=== PATIENT | male | born 1985 | race Caucasian/White ===

== ENCOUNTER 2020-02-24 16:27 | Outpatient (CLI) | payer OTHER, SELFPAY ==
[2020-02-24 17:14] LABS: SARS-CoV-2 Ag Negative (Negative)
== END 2020-02-24 16:28 | disposition home or self-care (01) ==
PROVIDERS: PCP Family Medicine; Visit Provider Family Medicine
DX: Z20.828 Contact with and (suspected) exposure to other viral communicable diseases (principal)
CPT/HCPCS: 87426

== ENCOUNTER 2020-02-25 11:26 | Outpatient (CLI) | payer OTHER, SELFPAY ==
--- NOTE | ~2020-02-25 | XR_ITS ---
LUMBAR SPINE INDICATION: Back pain TECHNIQUE: 5 views lumbar spine views lumbar spine COMPARISON: None FINDINGS: No fracture, subluxation or dislocation. No evidence for spondylolysis or spondylolisthesi s. Vertebral bodies and disk spaces are preserved. IMPRESSION: 1: No significant abnormality of the lumbar spine identified. Reviewed, dictated and finalized at location A. [employer] [employer]
[2020-02-25 11:45] LABS: Basophils Absolute Auto 0.1 K/mm3 (0.0-0.1); Basophils Percent Auto 0.9 % (0.2-1.2); Eosinophils Absolute Auto 0.1 K/mm3 (0-0.3); Eosinophils Percent Auto 2.1 % (0-4.4); Hematocrit 43.6 % (42.0-52.0); Hemoglobin 14.8 g/dL (14.0-18.0); Immature Granulocyte Absolute 0.01 K/mm3 (0.00-0.031); Immature Granulocyte Percent A 0.2 % (0-0.5); Lymphocytes Absolute Auto 1.83 K/mm3 (0.9-3.2); Lymphocytes Percent Auto 28.9 % (18.3-44.2); Mean Corpuscular HGB Conc 33.9 g/dl (32-36); Mean Corpuscular Hemoglobin 30.8 pg (26-34); Mean Corpuscular Volume 90.8 fl (80-100); Mean Platelet Volume 8.6 fl (7.4-10.4); Monocytes Absolute Auto 0.5 K/mm3 (0.1-0.6); Monocytes Percent Auto 8.5 % (2.6-8.5); Neutrophils Absolute Auto 3.8 K/mm3 (1.3-6.7); Neutrophils Percent Auto 59.4 % (45.5-73.1); Platelet Count Result 308 k/mm3 (150-375); Red Cell Distribution Width 11.2 % (11.5-14.5); White Blood Count 6.3 K/mm3 (4.5-10.0)
[2020-02-25 11:47] LABS: Add Urine Microscopic? NO; Appearance Urine Clear (Clear); Bilirubin Urine Negative (Negative); Blood Urine Negative (Negative); Color Urine Colorless (Yellow); Glucose Urine UA Negative (Negative); Ketones Urine Negative (Negative); Leukocyte Esterase Ur Negative LEU/UL (NEGATIVE); Nitrate Urine Negative (Negative); Protein Urine Negative (Negative); Specific Grav Ur 1.008 (1.001-1.035); Urobilinogen Urine Negative mg/dL (<2.0)
[2020-02-25 11:58] LABS: Anion Gap 8 mmol/L (8-16); Blood Urea Nitrogen 13 mg/dL (9-20); Calcium 9.4 mg/dL (8.4-10.2); Carbon Dioxide 27 mmol/L (22-30); Chloride 101 mmol/L (98-107); Estimated Glomerular Filt Rate > 60; Glucose 116 mg/dL (75-110); Potassium 4.3 mmol/L (3.4-5.0); Sodium 136 mmol/L (137-145)
== END 2020-02-25 11:27 | disposition home or self-care (01) ==
LOC: ANHLAB 11:29
PROVIDERS: PCP Family Medicine; Visit Provider Family Medicine
DX: M54.5 Low back pain (principal)
CPT/HCPCS: 36415; 72110; 80048; 81003; 85025

== ENCOUNTER 2020-07-17 10:34 | Emergency (ER) | payer OTHER, SELFPAY ==
[2020-07-17 10:48] VITALS: BP 126/82; PULSE 106; RESP 18; TEMP 37.4; O2SAT 100
--- NOTE | 2020-07-17 11:29 | ED.URI ---
HPI - URI/Sore Throat General Chief Complaint: Upper Respiratory Infection Stated Complaint: Fever,Cough,Headache Source: patient and RN notes reviewed Mode of arrival: ambulatory Limitations: no limitations History of Present Illness HPI Narrative: 35 year old male who [facility] with complaints of cough, sore throat, rhinorrhea, headache and body aches since Thursday. Patient states that he has had fevers up to highest being 103F on Thursday. Patient states that he has taken Tylenol and Ibuprofen for his symptoms. Patient states that he was with group of people about 1 1/2 weeks ago and since then some ave tested positive for COVID. Patient has nt received COVID of Influenza vaccines. MD elicited complaint: fever, cough, sore throat, rhinorrhea and other (headache and body ache) Onset (ago): day(s) (4) Description of mucous: clear Able to tolerate fluids by mouth: Yes Exacerbating factors: exertion Relieving factors: nothing Context: sick contacts Associated symptoms: fever, chills, myalgias, headache, rhinorrhea, sore throat and cough Treatments prior to arrival: acetaminophen and ibuprofen Related Data Allergies Allergy/AdvReac Type Severity Reaction Status Date / Time No Known Allergies Allergy Verified 07/17/20 11:10 Review of Systems Review of Systems: Narrative: CONSTITUTIONAL:Positive for fever, chills, or sweats. EYES: Denies visual changes, redness, or discharge. ENT:Positive for rhinorrhea, congestion, sore throat, no otalgia. CARDIOVASCULAR: Denies chest pain, palpitations, or edema. RESPIRATORY:Positive cough no dyspnea. GASTROINTESTINAL: Denies abdominal pain, nausea, vomiting, or diarrhea. GENITOURINARY: Denies dysuria or hematuria. SKIN: Denies rash or itching. MUSCULOSKELETAL: Denies back pain, joint pain, positive body aches generalized NEUROLOGIC: Positive headache,no numbness, or weakness. PSYCHIATRIC: Denies anxiety or depression. All systems reviewed & are unremarkable except as noted in HPI and below PMFSH Past Medical History Medical History (Updated 07/21/20 @ 14:37 by Edelmira Broussard NP) No significant past medical history Surgical History Surgical History (Updated 07/21/20 @ 14:38 by Edelmira Broussard NP) No history of previous surgery Family History Family History (Updated 07/21/20 @ 14:37 by Edelmira Broussard NP) Other Cancer Heart disease Hypertension Social History Social History (Updated 07/21/20 @ 14:38 by Edelmira Broussard NP) Smoking status: Never smoker Alcohol intake: current Alcohol use details: social Substance use: never Living arrangements: with family Gender identity (if verbalized by the patient): Male Comments At time of signature, agree with nursing past medical, surgical, social and family history. There is no relevant family history pertinent to the presenting complaint Exam Narrative: Exam Narrative: GENERAL: Well-appearing, well-nourished, and in no acute distress. HEAD: Normocephalic, atraumatic. EYES: PERRLA and EOMI. ENT: Nares red with clear rhinorrhea no epistaxis. Mucous membranes moist.TM's normal with good light reflex, throat red with no lesions or exudate,mild tonsil enlargement NECK: Supple.no lymphadenopathy CHEST: Clear to auscultation. No respiratory distress.cough non productive, SAO2 100% on room air HEART: Regular rate and rhythm. No murmur heard. Normal peripheral pulses. ABDOMEN: Soft, nontender, nondistended, normal active bowel sounds. EXTREMITIES: Normal range of motion. No edema. SKIN: Warm, dry, no rash. NEURO: No focal deficits. Alert and oriented x3. Course Vital Signs Vital signs: Vital Signs Temperature 37.4 C 07/17/20 10:48 Pulse Rate 106 H 07/17/20 10:48 Respiratory Rate 18 07/17/20 10:48 Blood Pressure 126/82 07/17/20 10:48 Pulse Oximetry 100 07/17/20 10:48 Temperature 37.4 C 07/17/20 10:48 Pulse Rate 106 H 07/17/20 10:48 Respiratory Rate 18 07/17/20
== END 2020-07-17 12:24 | disposition home or self-care (01) ==
PROVIDERS: Emergency Provider Registered Nurse; PCP Family Medicine
DX: U07.1 COVID-19 (principal)
CPT/HCPCS: 87081; 87426; 87804; 87880; 99213; C9803; G0463

== ENCOUNTER 2020-07-23 21:00 | Emergency (ER) | payer OTHER, SELFPAY ==
--- NOTE | ~2020-07-23 | XR_ITS ---
EXAMINATION: XR chest 1V portable DATE: 07/23/2020 21:50 INDICATION: Shortness of breath. Fever. COVID-19 positive. TECHNIQUE: A single frontal view of the chest was obtained. COMPARISON: Chest 2 views 08/15/2016 FINDINGS: The chest demonstrates clear lungs without pneumonia, pleural effusion, or pneumothorax. Th e heart size is normal. IMPRESSION: 1. No acute cardiopulmonary disease. Reviewed, dictated and finalized at location A.
[2020-07-23 21:14] VITALS: BP 140/102; PULSE 133; RESP 40; TEMP 38.8; O2SAT 98
--- NOTE | 2020-07-23 21:14 | ECG_ITS ---
Measurements Intervals [place] Rate: 147 P: 54 UT: 112 QRS: 76 QRSD: 79 T: 68 QT: 284 QTc: 445 Interpretive Statements SINUS TACHYCARDIA WITH SHORT [place] INTERVAL BORDERLINE ST-T WAVE ABNORMALITY- ANTEROLAT/INF LEADS BASELINE WANDER- AVR, AVL ABNORMAL ECG Electronically Signed On 07-24-2020 6:59:33 CDT by Freddie Ford D.O.
--- NOTE | 2020-07-23 21:35 | ED.GENADULT ---
HPI - General Adult General Chief complaint: Arrhythmia/Palpitations Stated complaint: heart palpatations Time Seen by Provider: 07/23/20 21:26 Source: patient History of Present Illness HPI narrative: Patient is a 35 y/o male complaining of moderate heart palpitation for last 2 months. He states that his palpitation is worse during last 2 days. There is no known alleviating or exacerbating factor. He also has fever, cough and mild SOB attributable to COVID. He states that he saw his PCP recently for palpitation. He was supposed have a Holter monitor, but that was delayed due to recent COVID diagnosis. Related Data Home Medications Medication Instructions Recorded Confirmed No Home Medications 07/23/20 07/23/20 Allergies Allergy/AdvReac Type Severity Reaction Status Date / Time cat dander Allergy Sneezing Verified 07/23/20 21:20 Review of Systems Constitutional: Constitutional: Reports chills, Reports fever(s), Denies headache(s) and Denies weakness Eyes: Eyes: Denies blurry vision ENT: Denies headache(s) and Denies neck pain Cardiovascular: Cardiovascular: Denies chest pain, Reports rapid heart rate and Reports dyspnea Respiratory: Respiratory: Denies cough and Reports dyspnea Gastrointestinal: Gastrointestinal: Denies abdominal pain, Denies diarrhea, Denies nausea and Denies vomiting Genitourinary: Genitourinary: Denies hematuria and Denies dysuria Musculoskeletal: Musculoskeletal: Denies back pain and Denies neck pain Neurologic: Denies headache(s) and Denies weakness PMFSH Past Medical History Medical History No significant past medical history Surgical History Surgical History No history of previous surgery Family History Family History Other Cancer Heart disease Hypertension Social History Social History Smoking status: Never smoker Alcohol intake: current Substance use: never Gender identity (if verbalized by the patient): Male Exam Const: General: no acute distress and well developed Orientation/consciousness: oriented to person, oriented to place, oriented to time and patient oriented x3 HENMT: Head: normocephalic Ears: external ears normal General nose exam: Normal external nose present Eyes: General: appearance normal, both eyes and all related structures Conjunctivae: conjunctivae normal Neck: Neck: normal visual inspection and full ROM Chest: Chest palpation & inspection: normal inspection of the chest and no tenderness Resp: Effort & Inspection: able to speak in complete sentences and tachypneic Cardio: Rate: tachycardic Rhythm: regular rhythm GI: GI Palp: No abdominal tenderness and Yes Soft to palpation Skin: General skin exam: normal color and turgor normal Neuro: General: oriented to person, oriented to place, oriented to time and patient oriented x3 Cognition (Neuro): normal cognition Extrem: General: normal to inspection, full ROM and no pedal edema Psych: Appearance: grossly normal Mental Status: mental status grossly normal Affect: normal affect Course Vital Signs Vital signs: Vital Signs Temperature 38.8 C H 07/23/20 21:14 Pulse Rate 133 H 07/23/20 21:14 Respiratory Rate 40 H 07/23/20 21:14 Blood Pressure 140/102 H 07/23/20 21:14 Pulse Oximetry 98 07/23/20 21:14 Temperature 36.9 C 07/24/20 01:37 Pulse Rate 104 H 07/24/20 01:50 Respiratory Rate 20 07/24/20 01:50 Blood Pressure 120/77 07/24/20 01:50 Pulse Oximetry 95 07/24/20 01:50 Medical Decision Making Vital Signs Vital Signs: Vital Signs Temperature 38.8 C H 07/23/20 21:14 Pulse Rate 133 H 07/23/20 21:14 Respiratory Rate 40 H 07/23/20 21:14 Blood Pressure 140/102 H 07/23/20 21:14 Pulse Oximetry 98 07/23/20 21:14 Te
[2020-07-23 21:58] LABS: Basophils Percent Auto 0.2 % (0.2-1.2); Eosinophils Absolute Auto 0.1 K/mm3 (0-0.3); Eosinophils Percent Auto 1.8 % (0-4.4); Hematocrit 45.1 % (42.0-52.0); Hemoglobin 15.3 g/dL (14.0-18.0); Immature Granulocyte Absolute 0.02 K/mm3 (0.00-0.031); Immature Granulocyte Percent A 0.4 % (0-0.5); Lymphocytes Absolute Auto 0.73 K/mm3 (0.9-3.2); Lymphocytes Percent Auto 13.4 % (18.3-44.2); Mean Corpuscular HGB Conc 33.9 g/dl (32-36); Mean Corpuscular Hemoglobin 30.5 pg (26-34); Monocytes Absolute Auto 0.5 K/mm3 (0.1-0.6); Monocytes Percent Auto 9.3 % (2.6-8.5); Neutrophils Absolute Auto 4.1 K/mm3 (1.3-6.7); Neutrophils Percent Auto 74.9 % (45.5-73.1); Platelet Count Result 218 k/mm3 (150-375); Red Blood Count 5.01 M/mm3 (4.6-6.20); Red Cell Distribution Width 10.9 % (11.5-14.5); White Blood Count 5.5 K/mm3 (4.5-10.0)
[2020-07-23] MEDS: ACETAMINOPHEN 325 MG TABLET 650 MG PO (22:00)
[2020-07-23 22:08] LABS: Lactic Acid Reflex 0.8 mmol/L (0.7-2.1)
[2020-07-23 22:10] LABS: Alanine Aminotransferase 17 U/L (4-50); Albumin Level 4.2 g/dL (3.5-5.1); Alkaline Phosphatase 45 U/L (38-126); Anion Gap 6 mmol/L (8-16); Aspartate Amino Transferase 34 U/L (17-59); Bilirubin,Total 0.5 mg/dL (0.2-1.3); Blood Urea Nitrogen 13 mg/dL (9-20); Calcium 9.1 mg/dL (8.4-10.2); Carbon Dioxide 28 mmol/L (22-30); Chloride 101 mmol/L (98-107); Estimated CRCL calculation 121 ml/min; Estimated Glomerular Filt Rate > 60; Glucose 127 mg/dL (75-110); Sodium 135 mmol/L (137-145)
[2020-07-23] MEDS: SODIUM CHLORIDE 0.9% IV 1,000 ML 999 ML IV CONT ×2 (22:29→23:32)
[2020-07-23 23:16] VITALS: BP 120/72; PULSE 112; RESP 32; TEMP 37.9; O2SAT 100
[2020-07-23 23:16] LABS: Add Urine Microscopic? YES; Appearance Urine Clear (Clear); Bacteria Urine Trace /hpf; Bilirubin Urine Negative (Negative); Blood Urine Negative (Negative); Color Urine Yellow (Yellow); Glucose Urine UA Negative (Negative); Ketones Urine 1+ mg/dL (Negative); Leukocyte Esterase Ur Negative LEU/UL (Negative); Mucus Urine Rare /lpf; Nitrate Urine Negative (Negative); Protein Urine Negative (Negative); RBC Urine 0-2 /hpf (0-2); Specific Grav Ur 1.014 (1.001-1.035); Urobilinogen Urine Negative mg/dL (<2.0); WBC Urine 0-3 /hpf
[2020-07-23 23:52] LABS: Thyroid Stimulating Hormone 0.991 uIU/mL (0.465-4.680)
--- NOTE | 2020-07-24 01:25 | ECG_ITS ---
Measurements Intervals [place] Rate: 104 P: 34 [place]: 150 QRS: 56 QRSD: 77 T: 30 QT: 325 QTc: 429 Interpretive Statements SINUS TACHYCARDIA BASELINE WANDER- III, AVF, V2-V3 BORDERLINE ECG Electronically Signed On 07-24-2020 7:13:56 CDT by Freddie Ford D.O.
[2020-07-24 01:37] VITALS: BP 121/74; PULSE 105; RESP 32; TEMP 36.9; O2SAT 97
[2020-07-24 01:50] VITALS: BP 120/77; PULSE 104; RESP 20; O2SAT 95
== END 2020-07-24 02:29 | disposition home or self-care (01) ==
PROVIDERS: Emergency Provider Emergency Medicine; PCP Family Medicine
DX: U07.1 COVID-19 (principal); R00.2 Palpitations; R00.0 Tachycardia, unspecified; R94.31 Abnormal electrocardiogram [ECG] [EKG]
CPT/HCPCS: 36415; 71045; 80053; 81001; 83605; 84443; 85025; 87040; 93005; 96360; 96361; 99283; A9270; J7030

== ENCOUNTER 2020-07-27 14:56 | Outpatient (CLI) | payer OTHER, SELFPAY ==
--- NOTE | 2020-07-30 09:41 | WPDHOLTEREM ---
Holter/Event Monitor Holter/Event Monitor Date of procedure: 07/27/20 Procedure Type: 24 hour holter monitor Indications: Palpitations Conclusion: 1. 24 hour holter monitor on 07/27/20. 2. Underlying rhythm is sinus rhythm. HR range 50-154 bpm; average 84 bpm. 3. No premature supraventricular complexes. No supraventricular tachycardia. 4. No premature ventricular complexes. No ventricular tachycardia. 5. No sinoatrial or atrioventricular blocks. No significant pauses greater than 2 seconds. 6. No symptoms available for correlation.
== END 2020-07-27 14:57 | disposition home or self-care (01) ==
LOC: CHSCARD 14:58
PROVIDERS: PCP Family Medicine; Visit Provider Family Medicine
DX: R00.2 Palpitations (principal)
CPT/HCPCS: 93225; 93226

== ENCOUNTER 2021-06-03 12:58 | Outpatient (CLI) | payer OTHER, SELFPAY ==
--- NOTE | 2021-07-09 07:51 | EVENT_ITS ---
This report was moved to the correct visit, on 07/09/2021. Original report was signed by Freddie Ford DO on 07/09/21 1037. Event Monitor <Freddie Ford DO - Last Filed: 07/09/21 10:36> Indications: Palpitations Date of Interpretation: 07/09/21 Final Interpretation: 1. 27 days event monitor between 06/03/21-07/02/21. There are 104 available transmissions for analysis. 2. Predominant rhythm is sinus rhythm. HR range 52-185 bpm; average HR 89 bpm. HR at 185 bpm was due to atrial tachycardia. 3. There are occasional premature supraventricular complexes with total burden of <1%. There is one episode of atrial tachycardia at 185 bpm lasting 8 beats on 06/17/21 at 19:56. 4. There are occasional premature ventricular complexes with total burden of <1%. No ventricular tachycardia. 5. No significant pauses greater than 2 seconds. 6. Patient reports 83 episodes of symptoms of skipped beats, shortness of breath, heart racing and symptom other than listed which demonstrate sinus rhythm with majority with PAC's and some PVC's and 1 atrial tachycardia described above. Documented By: Freddie Ford DO 07/09/21 0751 Signed By: <Electronically signed by Freddie Ford DO> 07/09/21 1037 MTDD
== END 2021-06-03 12:59 | disposition home or self-care (01) ==
PROVIDERS: PCP Family Medicine; Visit Provider Family Medicine
DX: R00.2 Palpitations (principal)
CPT/HCPCS: 93270